=== PATIENT | female | born 1950 | race Caucasian/White ===

== ENCOUNTER 2018-07-22 05:59 | Inpatient (IN) | payer OTHER, SELFPAY ==
[2018-07-11 08:53] VITALS: BMI 41.5
[2018-07-22] VITALS (20 sets, daily range): BP systolic 105–161; BP diastolic 55–82; PULSE 62–112; RESP 6–17; TEMP 36.1–37.6; O2SAT 94–100; BMI 41.5
--- NOTE | 2018-07-22 | DI.RAD.S_ITS ---
PROCEDURE: XR LUMBAR SPINE 2-3V INDICATIONS: L3-4, L4-5 XLIF POSTERIOR FUSION TECHNIQUE: 2 views of the lumbar spine were acquired. COMPARISON: [facility], [place], XR LUMBAR SPINE 2 OR 3 VIEWS, 05/07/2018, 16:20. FINDINGS: 2 intraoperative fluoroscopy images demonstrate discectomy and posterior fusion at L3L4 and L4-L5. IMPRESSION: Discectomy and posterior fusion at L3-L4 and L4-L5. Dictated by: Edson Choi M.D. on 07/22/2018 at 16:30 Approved by: Edson Choi M.D. on 07/22/2018 at 16:31
[2018-07-22] MEDS: LACTATED RINGERS 1,000 ML 42 ML IV ×2 (06:50→09:42)
--- NOTE | 2018-07-22 07:29 | PM.PREOP ---
Pre-operative Note Interval Note Pre-op Check: Yes History & Physical Reviewed by Physician and Yes Exam Performed Changes: No
--- NOTE | 2018-07-22 07:45 | PM.OP.1 ---
Operative Date/Time/Diagnoses Date of procedure: 07/22/18 Time of procedure: 13:02 Pre-op diagnosis: Lumbar stenosis History of lumbar laminectomy Lumbar spondylolisthesis Post-op diagnosis: same Procedure & Clinicians Procedure: L3-4, L4-5 anterior fusion with cages L3-4, L4-5 posterior fusion L3, L4, L5 screws Iliac crest bone graft Revision L3-4 laminectomy Revision L4-5 laminectomy Microscope Placement of epidural catheter Same procedure as scheduled: Yes Indications: [age] year old female with intractable pain from stenosis. They had failed conservative management and requested operative intervention. Risks and benefits of surgery were discussed and appropriate consents were obtained. Surgeon: Iglesia Reynoso Building Equipment Operator: Kimmy Daigle Anesthesia Type: General Operative Notes Findings: dural tear, repaired primarily Closure Type: primary Specimen(s): none sent Implants & Drains: NuVasive Reline screws (open and MAS) NuVasive XLIF cages Applied: catheter Estimated Blood Loss (mL): 50 Procedure in detail: Patient was brought to the operating room and intubated on the table. Time-out was performed. They were then rolled over to the lateral decubitus position with the [id number]. The table was bent and they were taped down in the correct position. X-rays were taken to confirm a true AP and lateral. Preoperative antibiotics were given. The left flank was prepped and draped in standard sterile fashion. Using fluoroscopy, a 3 cm incision was made above the iliac crest. We bluntly dissected down with Metzenbaum scissors and split the 3 abdominal muscle layers. We dissected out the retroperitoneal space and using finger guidance, brought our 1st dilator down to the psoas muscle. Using neuromonitoring and fluoroscopy, we placed it through the psoas onto the L4-5 disc space in an anterior position and gradually pulled the dilator posteriorly along the disc space. We placed our guidewire and measured our depth for the retractor. We then dilated with the next 2 dilators and then placed our retractor over the dilators. Position was confirmed with fluoroscopy and the retractor was locked down to the bar. We opened up the retractor and checked with neuro monitoring. We then placed the cesar and again checked with neuro monitoring. The retractor was opened further and the ALL retractor was placed. An annulotomy was performed. We then performed a complete diskectomy with ring curette, pituitary, box osteotome. A Curry was advanced across the disc space under fluoroscopy to release the lateral annulus on the opposite side. We then used sequentially larger trials and confirmed under fluoroscopy. An XLIF cage was packed with Osteocell bone graft and impacted into the L4-5 disc space with fluoroscopy for the anterior fusion at this level. The wound was irrigated. The retractor was closed down. The cesar was removed. We carefully removed the retractor with direct visualization to make sure there was no neurovascular or abdominal injury. We then repeated the procedure and went up to L3-4. This was dilated, the retractor opened, a complete diskectomy with lateral release, and placement of a cage with bone graft for the anterior fusion at L3-4. The retractor was carefully removed under direct visualization. Final x-rays were taken. The muscle fascia was closed, superficial tissue was closed. The skin was closed. Sterile dressing was placed. The patient was then rolled over on the well-padded prone position on the Raoms table. Using fluoroscopy for localization, a 10cm incision was made in the midline using her previous incision. We dissected down the right sided paraspinal muscles to expose the lamina and confirmed our position. We were very careful over previous laminotomy at L3-4. We then exposed the transverse processes at the level of fusion. We then began placing our screws. A bur was used to decorticate the junction of the facet and transverse process. We then advanced a gear shifter down the pedicle using neuro monitoring. We checked with the ball probe to confirm a floor and 4 wong on the pedicle. We then tapped also with neuro monitoring. We checked again with the ball probe and then placed our screw with neuro monitoring. The screws were placed in this fashion down the right pedicles of L3, L4, and L5. The lindsey was loosely placed and x-rays were taken to confirm positioning and then the set screws were locked down. We then brought in the microscope. A laminectomy was performed at L4-5 with a bur and Kerrison rongeurs. She had scar tissue tracking all the way down to the L4-5 disc space from her previous decompression. Her entire ligament was calcified and densely adherent to the facet at L4-5. As we are trying to remove this to decompress, we had a dural tear. This was protected with a cottonoid dexter. We then finished out the decompression using osteotomes to remove the facets and carefully clearing back with a curette. Finally we were able to get the scar tissue freed up and adequately decompressed. We cleared out the neural foramen. This was a revision decompression at both levels due to the severe amount of scar tissue at her operative level L3-4 as well as tracking down to the L4-5 level. Once everything was wide open, we repaired the dural tear with a running locking 6 0 silk stitch. This was water tight on Valsalva. The wound was copiously irrigated. A small stab incision was made over the PSIS and a Jamshidi needle was placed into the iliac crest and several mL of bone marrow was aspirated. This was mixed with our locally harvested bone graft as well as the remaining Osteocell and bone chips and placed in the posterolateral gutter for fusion at L3-4 and L4-5. An epidural catheter was primed with 4mL of 0.5% bupivacaine, 100 mcg fentanyl, 4 mg Duramorph, 1 mg Stadol. The dura was depressed under the cephalad lamina with a ball probe and the epidural catheter was gently advanced 6 cm cephalad. The fascia was then closed in layers. The epidural was then injected without resistance. The catheter was pulled and we closed more over the fascia. We then used fluoro to make a 8 cm incision on the left side. We used fluoro and neuro monitoring to percutaneously place Jamshidi needles down the left pedicles of L3, L4, and L5. These were switched out the guidewires, tapped and the MAS screws were placed. A lindsey was placed and locked down. Final x-rays were taken. The wounds were irrigated. Vancomycin powder was placed in the wounds. The superficial and skin were closed. Sterile dressing was placed. The patient was then rolled over, extubated, brought to the recovery room with no complications. Complications: none Condition: stable Disposition: PACU Plan for aftercare: Bedrest today after the dural tear but up tomorrow morning.
[2018-07-22] MEDS: CEFAZOLIN 2 GM/100 ML FROZ.PIGGY IV ×3 (07:53→19:45)
--- NOTE | 2018-07-22 08:39 | SUR.OPER ---
Right lateral on padded OR table. Head on pillow, gel axillary roll, pillow to support left arm. Legs flexed, pillows between legs, gel pad under down leg and ankle. Multiple passes of 3 inch cloth tape across shoulder, hip, upper and lower legs to secure patient on OR table.
--- NOTE | 2018-07-22 08:39 | SUR.OPER ---
Prone on spine table, head in foam head support, padded chest and pelvic supports, gel pad at knees, lower legs supported by pillows; nipples, genitalia and toes free of pressure, arms secured on foam padded arm boards at <90 degrees abduction. Tape over blanket at thigh secured to table.
[2018-07-22] MEDS: SODIUM CHLORIDE 0.9% 1,000 ML, GENTAMICIN 80 MG IRR (08:51)
[2018-07-22] MEDS: BUPIVACAINE 0.5% (PF) 4 ML, MORPHINE-PF 4 MG, BUTORPHANOL 1 MG, fentaNYL 100 MCG INJ (08:54)
[2018-07-22] MEDS: VANCOMYCIN 1,000 MG VIAL 1000 MG TOP (08:55)
[2018-07-22] MEDS: THROMBIN (BOVINE) 5,000 UNIT VIAL 5000 UNIT TOP (11:12)
--- NOTE | 2018-07-22 14:18 | SUR.PHASEI ---
DR PETERS NOTIFIED PT REMAINS VERY SLEEPY AND NEEDING CONSTANT STIMULI TO BREATH, DR PETERS IN TO SEE PT, WILL HAVE RESPIRATORY IN TO USE HOSPITAL BIFLEX MACHINE PTS CPAP MACHINE IS NOT ABLE TO USE WITH OXYGEN. DR CISNEROS ALSO NOTIFIED PT REMAINS SLEEPY WITH RESPIRATORY RATE 4-9 IF NOT STIMULATED, WILL CONTINUE TO OBSERVE AND MONITOR.
--- NOTE | 2018-07-22 14:20 | RT ---
Patient has her bipap machine with her. She is unable to wear it at this time due to her need for O2 bled in. Placed on the hospital's biflex machine with 4lpm of O2 bled in. Patient is using a medium nasal mask with our machine and is tolerating it well. She has nasal pillows with her home machine. Patient was informed she can go back to using her machine as soon as she is able to, we are just unable to bleed in the oxygen needed at this point to her machine.
[2018-07-22] MEDS: HYDROMORPHONE 2 MG INJ 0.25 MG IV (15:08)
[2018-07-22] MEDS: CELECOXIB 200 MG CAPSULE 400 MG PO (16:22)
[2018-07-22] MEDS: LACTATED RINGERS 1,000 ML 125 ML IV ×2 (16:28→22:36)
[2018-07-22] MEDS: ONDANSETRON 4 MG/2 ML INJ IV (18:46)
[2018-07-22] MEDS: GABAPENTIN 300 MG CAPSULE PO (21:09)
[2018-07-22] MEDS: CELECOXIB 200 MG CAPSULE PO (21:09)
[2018-07-22] MEDS: DORZOLAMIDE/TIMOLOL OPHTH 10 ML 1 DROPS EYE-BOTH (21:10)
--- NOTE | 2018-07-22 21:43 | PC.NURSE ---
Pt remains drowsy after surgery today. Oriented when awake, rouses to voice. Placed on home CPAP by RT, SpO2 94%. Dressings to back CDI. HOB flat per orders. 1 episode of nausea and dry heaving, resolved with IV zofran.
[2018-07-23] VITALS (11 sets, daily range): BP systolic 91–128; BP diastolic 41–66; PULSE 73–106; RESP 13–20; TEMP 36.1–37.8; O2SAT 90–99
[2018-07-23] MEDS: HYDROCODONE/ACET 5/325 TABLET 1 TAB PO ×4 (00:19→16:21)
[2018-07-23] MEDS: hydrOXYzine pamoate 25 MG CAPSULE PO ×3 (00:21→16:21)
[2018-07-23] MEDS: CEFAZOLIN 2 GM/100 ML FROZ.PIGGY IV (04:08)
[2018-07-23] MEDS: ONDANSETRON 4 MG/2 ML INJ IV (04:24)
[2018-07-23 05:53] LABS: Hematocrit 31.3 % (36-46); Hemoglobin 10.5 g/dL (12.0-16.0)
[2018-07-23] MEDS: METOCLOPRAMIDE 10 MG/2 ML INJ IV (06:31)
--- NOTE | 2018-07-23 07:06 | PC.NURSE ---
NOC Shift: Pt POD LAMI Redo w/dura tear. AAOx3, on home CPAP throughout noc w/o O2 support. SaO2's remained low 90's, sometimes 88 to 89 when asleep. VSS, ST. FOB through shift per MD order, neurologically intact, no deficits noted except mild headache. Medicated with po pain med. At end of shift pt developed nausea, emesis x2 was able to keep airway protected, sats stable. Wanted to be off CPAP this AM felt it was making her feel nauseated, put on 2L NC while dozing to keep sats from dropping below 90. Using IS appropriately. Dsgs CDI. HOB up to 35 degrees at 0700 ordered to be up to 45 but pt felt dizzy at 45. ICU care.
--- NOTE | 2018-07-23 08:07 | P.PN_ITS ---
Subjective Date Patient Seen: 07/23/18 Time Patient Seen: 08:05 Interval history: Patient had problems with nausea and vomiting overnight. This is getting much better. She also had a headache but that is getting better. She was on bedrest overnight but has been up with an elevated head of bed since 7:00 a.m.. No difficulty with this. No photophobia, worsening of headache or any current nausea. No pain in the legs, although back pain. Pain is about 3/10 Exam Vital Signs (past 8 hours): - 07/23/18 04:07 Temperature 96.9 F L Pulse Rate 106 H Respiratory Rate 17 Blood Pressure 123/44 L Pulse Oximetry 96 Oxygen Delivery Method CPAP Oxygen Flow Rate 2 Const Orientation: alert and oriented x3 Back/Spine/Pelvis Other: Dressing CDI. 5/5 motor both lower extremities Objective Labs Result Diagrams: 07/23/18 05:20 Labs: Laboratory Results - last 24 hr 07/22/18 07/23/18 16:00 05:20 Hgb 10.5 L Hct 31.3 L Nasal Screen MRSA (PCR) Negative for mrsa Assessment & Plan Post-op Postoperative Procedures Operation Date: 07/22/18 07:45 Actual Procedures Side Surgeon p L3-L4 Revision Laminectomy, L4-L5 Laminectomy, L3-L4, L4-L5 Anterior/ Posterior Instrumented Fusion w/ Bone Graft with Dural Repair Not Applicable Iglesia Reynoso MD she is doing better today. Okay to mobilize with physical therapy. No more restrictions for the dural tear. Transfer to the regular floor.
[2018-07-23] MEDS: CELECOXIB 200 MG CAPSULE 400 MG PO (09:25)
[2018-07-23] MEDS: DOCUSATE 100 MG CAPSULE PO ×2 (09:26→20:59)
[2018-07-23] MEDS: PANTOPRAZOLE 40 MG TABLET PO (09:28)
[2018-07-23] MEDS: LEVOTHYROXINE 88 MCG TABLET PO (09:28)
[2018-07-23] MEDS: DORZOLAMIDE/TIMOLOL OPHTH 10 ML 1 DROPS EYE-BOTH ×2 (09:29→21:01)
--- NOTE | 2018-07-23 11:39 | PT.IIE ---
Addendum entered and electronically signed by Janie Baxter PT 07/23/18 17:08: This is to certify that I have reviewed this documentation and POC Original Note: Current Diagnoses Spondylolisthesis, lumbar region (07/22/18) Spinal stenosis, lumbar region with neurogenic claudication (07/22/18) Other specified postprocedural states (07/22/18) Surgery Performed Operation Date: 07/22/18 07:45 Actual Procedures p L3-L4 Revision Laminectomy, L4-L5 Laminectomy, L3-L4, L4-L5 Anterior/Posterior Instrumented Fusion w/ Bone Graft with Dural Repair(Not Applicable) - Iglesia Reynoso MD Surgical History (Last Updated 07/11/18 @ 09:21 by Gwendolyn Acosta RN) History of bilateral tubal ligation (Acute) Hx of lumbar discectomy (Acute) Medical History (Last Updated 07/11/18 @ 09:29 by Gwendolyn Acosta RN) Arthritis (Acute) Cataract (Acute) Concussion (Acute) Easy bruisability (Acute) GERD (gastroesophageal reflux disease) (Acute) Glaucoma (Acute) History of frequent urinary tract infections (Acute) Hypothyroidism (Acute) Lumbar spinal stenosis (Acute) Numbness and tingling (Acute) MARAL on CPAP (Acute) RLS (restless legs syndrome) (Acute) Seasonal allergies (Acute) Sinus drainage (Acute) Walking pneumonia (Acute) Physical Therapy Inpatient Evaluation/Re-Eval M1 PT/OT-IP Prior Functional Status Start: 07/23/18 12:42 Freq: NEEDED Status: Active Protocol: Document 07/23/18 11:39 (Rec: 07/23/18 16:28 [id number]) Medical Review Prior Functional Status Medical History Reviewed Yes Communication No deficits noted. Mobility and Gait Pt modified independent for outdoor ambulation using 2 walking sticks. Indoors she uses no AD, but does tend to cruise along the furniture. All other mobilities are independent. Social History Household Members spouse children Living Arrangements House Number of Floors (Floors) Two Floors Number of Stairs To Enter/Railing? No steps to enter. Home is 2 story, but pt set up to live entirely on first floor upon d /c. Home Environment Standard Height Toilet Walk in Shower Home Equipment Front Wheel Walker Raised Toilet Seat w/Armrests Hand Held Shower Additional Social History Comment Spouse avaliable to assist at discharge. Pt also sleeps in an adjustable bed with no rails. M2 PT-IP Current Condition Start: 07/23/18 12:42 Freq: NEEDED Status: Active Protocol: Document 07/23/18 11:39 (Rec: 07/23/18 16:28 [id number]) Physical Therapy Current Condition Current Condition Evaluation Date 07/23/18 Treatment Diagnosis Lumbar anterior/posterior fusion with laminectomy; Difficulty walking Onset Date 07/22/18 Precautions Lumbar Precautions Log Roll No Twisting Limit Bending Lifting Restriction of 10 lbs Gait Belt above Incisional Area M3 PT-IP Subjective Start: 07/23/18 12:42 Freq: NEEDED Status: Active Protocol: Document 07/23/18 12:42 AB (Rec: 07/23/18 12:44 AB [id number]) Subjective Physical Therapy Visit Type Notes checked on pt this morning for PT eval. PLOF and home set up obtained. BP prior to mobilization with HOB elevated to ~ 30 deg 88/38 on R arm and 80/64 on L arm. informed nurse. lowered HOB. BP checked again : 93/41. PT on hold at this time due to low BP. will f/u later in afternoon M4 PT-IP Mobility and Gait Start: 07/23/18 12:42 Freq: NEEDED Status: Active Protocol: Document 07/23/18 11:39 (Rec: 07/23/18 16:28 [id number]) PT-Bed Mobility Assessment Rolling Type of Rolling Log Rolling Roll to Right Level of Assist Maximal Assistance Supine to Sit Supine to Sit Maximum Assistance 1 Person Assistance Bedrails Scooting Scooting to Edge of Bed Moderate Assistance PT-Transfer Assessment Sit to and From Stand Sit to and from Stand Minimal Assistance 1 Person Assistance Equipment Transfer Assistive Device Gait Belt Front Wheeled Walker Transfers Transfer Destination Chair Comments Mobility Comments Supine BP 114/59 HR 76. Log rolling requires maxA x1 to complete with max cues for pt position. Sidelying > sitting EOB pt uses bed rail and maxA x1. Scooting to EOB requires modA x1 and cues to lean to one side and scoot one leg at a time. Sitting EOB pt c/o of dizziness. BP 159/104 HR 125. Pt cued for deep breathing and asked to rest. After 1-2 mins. resting, BP 128/69 HR 90 . Pt states dizziness still present, but decreased and agrees to attempt standing. Sit > stand is Alex with cues to push off of bed (not walker ) and to stand fully upright. Standing BP 116/68 HR 87. Pt cued for more deep breathing and standing rest 1-2 mins. BP 132/61 HR 89. Pt states dizziness is not increasing and she is anxious to ambulate . Gait Assessment Gait Gait Assistance Required: Minimum Assistance 1 Person Assist Distance (Feet) 15 Able to Maintain Weight Bearing Status Yes During Gait Assistive Devices Assistive Device Gait Belt Front Wheeled Walker Orthotic/Prosthetic Devices or Brace: No Gait Deviations General Gait Pattern Antalgic Decreased Stride Length Decreased Feet Clearance Flexed Trunk Narrow Based Gait Factors Limiting Gait Function Factors Limiting Gait Function Decreased Activity Tolerance Decreased Strength Limited Range of Motion Pain Poor Balance Poor Safety Awareness Comments Gait Comments Pt ambulates 15 ft in room with fww and Alex for steadying. She demonstrates increased sway and forward posture which she is able to correct with cues. Toe out gait and flat feet noted with ambulation. PT-Balance Assessment Sitting Balance and Reactions Static Sitting Balance Ability Good Dynamic Sitting Balance Ability Good Standing Balance and Reactions Static Standing Balance Ability Good Dynamic Standing Balance Ability Fair Device Used fww M5 PT-IP Objective Assessments Start: 07/23/18 12:42 Freq: NEEDED Status: Active Protocol: Document 07/23/18 11:39 (Rec: 07/23/18 16:28 [id number]) Orientation Orientation/Cognition Level of Alertness Alert Orientation Name Age Birthday Month Date Year Day of Week Place Situation Safety Awareness Decreased Safety Awareness Memory Description Short Term Impaired Gross Range of Motion Lower Extremity ROM Assessment Within Functional Limits Strength Lower Extremity Strength Assessment Bilaterally Impaired Hip Bilaterally 3+/5 Knee Bilaterally 3+/5 Ankle Bilaterally WNL Comments Strength Comments BLE strength limited by pain. Sensation Assessment Comments Sensation Comments Light touch intact on dorsum of B feet. Pt denies symptoms of numbness and tingling. M6 PT-IP Treatment Start: 07/23/18 12:42 Freq: NEEDED Status: Active Protocol: Document 07/23/18 11:39 (Rec: 07/23/18 16:28 [id number]) Physical Therapy Treatment Education Education Provided Precautions Weight Bearing Status Post-Op Packet Safety M7 PT-IP Assessment and Plan Start: 07/23/18 12:42 Freq: NEEDED Status: Active Protocol: Document 07/23/18 11:39 (Rec: 07/23/18 16:28 [id number]) PT Summary Assessment and Plan Potential Rehabilitation Potential Good Status of Condition at Evaluation Stable Summary Impairments Pain ROM Strength Balance Bed Mobility Transfers Gait Activity Tolerance Progress Towards Goals Progressing Toward Goals Assessment Summary Pt s/p lumbar fusion and laminectomy with difficulty walking. Today she required maxA x1 for all bed mobility. She was able to ambulate 15 ft with Alex x1. Caregiver training needs to be completed . Recommend d/c to home with 24/7 assist when pt is medically stable. Goals Bed Mobility Goal Standby Assistance Transfer Goal Standby Assistance Front Wheeled Walker Gait Goal Standby Assistance Front Wheel Walker Gait Distance 150 Days to Meet Goals 3 Frequency of Treatment Frequency Of Treatment Twice a Day Treatment Plan Physical Therapy Treatment Plan Bed Mobility Training Transfer Training Gait Training Therapeutic Exercise Balance Retraining Post Op Education Discharge Planning Hot or Cold Pack Neuromuscular Re-ed Coordination Retraining Manual Therapy Other Recommendations and Next Treatment ambulation. Caregiver Focus training Recommendations To Nursing Amount of Assist Needed 1 Person Assist Discharge Recommendations PT Discharge Recommendations Home with 24/7 Assist
--- NOTE | 2018-07-23 12:44 | PT.IPTN ---
Current Diagnoses Spondylolisthesis, lumbar region (07/22/18) Spinal stenosis, lumbar region with neurogenic claudication (07/22/18) Other specified postprocedural states (07/22/18) Surgery Performed Operation Date: 07/22/18 07:45 Actual Procedures p L3-L4 Revision Laminectomy, L4-L5 Laminectomy, L3-L4, L4-L5 Anterior/Posterior Instrumented Fusion w/ Bone Graft with Dural Repair(Not Applicable) - Iglesia Reynoso MD Physical Therapy Treatment Note M3 PT-IP Subjective Start: 07/23/18 12:42 Freq: NEEDED Status: Active Protocol: Document 07/23/18 12:42 AB (Rec: 07/23/18 12:44 AB [id number]) Subjective Physical Therapy Visit Type Notes checked on pt this morning for PT eval. PLOF and home set up obtained. BP prior to mobilization with HOB elevated to ~ 30 deg 88/38 on R arm and 80/64 on L arm. informed nurse. lowered HOB. BP checked again : 93/41. PT on hold at this time due to low BP. will f/u later in afternoon
--- NOTE | 2018-07-23 12:56 | OT.IP.TRT ---
Current Diagnoses Spondylolisthesis, lumbar region (07/22/18) Spinal stenosis, lumbar region with neurogenic claudication (07/22/18) Other specified postprocedural states (07/22/18) Surgery Performed Operation Date: 07/22/18 07:45 Actual Procedures p L3-L4 Revision Laminectomy, L4-L5 Laminectomy, L3-L4, L4-L5 Anterior/Posterior Instrumented Fusion w/ Bone Graft with Dural Repair(Not Applicable) - Iglesia Reynoso MD Occupational Therapy Treatment Note M3 OT- IP Subjective and Pain Start: 07/23/18 12:54 Freq: Status: Active Protocol: Document 07/23/18 12:54 PJM (Rec: 07/23/18 12:56 PJM [id number]) OT- Subjective Occupational Therapy Visit Type Type Administrative Note Visit Start Time 12:50 Notes OT referral received. Pt unable to mobilize with P.T. this AM due to hypotension. Pt not yet ready fro self care assessment. Will attempt again this PM or in AM as medical status permits. No charge.
--- NOTE | 2018-07-23 15:28 | CM.DPC ---
DCP Cont: Met w/pt and her spouse in the ICU this morning, explained role. Pt is indp at baseline and expects to return home w/spouse to assist when medically stable. Pt appreciative of the visit and knows to alert this HUMAN RESOURCES MANAGER if DC needs or concerns arise. PT on hold today d/t pt's BP. This HUMAN RESOURCES MANAGER following closely w/therapy team for assessment of DC needs. SONIA Alejandro Discharge Planning/Care Management CM Discharge Assessment Start: 07/22/18 10:16 Freq: Status: Active Protocol: Document 07/22/18 10:16 KJS (Rec: 07/22/18 10:30 KJS [id number]) Discharge Planning Assessment Assigned Emergency Medicine Medical Director SONIA Fitzgerald Contact Information Price Wang (spouse) Advance Directives? No Advance Directives on File No History Provided By Medical Record Has Patient been admitted in last 30 No days? Prior Living Arrangements House Household Members spouse children Comment Unclear patient currently in surgery. Unable to do assessment. Whiteboard Updated in Patient Room with No name and ext. # of Emergency Medicine Medical Director Comment Patient admitted today for L4- L5 Lami with Dr. Reynoso. Primar payor is 1)[employer]. PCP listed is Lotus Warren. Patient resides in [place]. CM team to assess once patient on the floor and medically appropriate.
[2018-07-23] MEDS: LORazepam 2 MG/ML SYRINGE 0.5 MG IV (20:29)
[2018-07-23] MEDS: GABAPENTIN 300 MG CAPSULE PO (20:59)
[2018-07-23] MEDS: SENNOSIDES 8.6 MG TABLET 17.2 MG PO (20:59)
[2018-07-23] MEDS: HYDROCODONE/ACET 5/325 TABLET 2 TAB PO (21:00)
[2018-07-23] MEDS: CELECOXIB 200 MG CAPSULE PO (21:01)
--- NOTE | 2018-07-23 22:09 | PC.NURSE ---
Student nurse note: When this student nurse came on shift patient had low urine output of 200mls and urine was dark orange. She had no fluids running. When asked about her oral fluid intake she stated that she had a bout of nausea and vomiting the night before and was very hesitant to eat or drink anything. This student nurse educated the patient on the importance of keeping hydrated to help with kidney function and healing. The patient had previously stated that she knew she was dehydrated. The patient responded well to the education and verbally acknowledged that she understood and this student nurse witnessed the patient increase her oral intake of water. As a result by the end of shift her urine output increased to 800mls and urine was clear and light yellow. Patient reported that she had not had a bowel movement since the night before surgery. She reported little food intake because she was anxious about another episode of nausea and vomiting. Patient had hypoactive bowel tones. She saw PT and ambulated minimally from bed to chair in room and back. Patient ate approximately 25% of her meal, she reported that was the most she has eaten so far. She reported no post meal nausea Patient reported pain between 3 and 4. When she transferred from standing to lying in bed patients face indicated she was in an extreme amount of pain and use some curse words to cope with high pain level. When asked pain level during this time she reported a 4. This student nurse asked the patient what her highest level of pain experienced so far was and patient stated that it was a 4. Earlier in the shift the patient was offered 2 PRN [place] to treat pain. Patient was still anxious about reoccurring nausea/vomiting so she stated she would take only 1 [place] and an Vistaril. Towards the end of this student nurses shift the patient reported a pain level of 4 but her FLACC score was a 10. The patient asked to be repositioned on her side and during repositioning the patient expressed that she thought she may throw up. This student nurse educated the patient in pain management by stating that when you are in extreme pain you may experience nausea and vomiting and that she may need to consider taking both of her pain medications to stay on top of her pain, and in turn manage nausea. The charge nurse administered Ativan 0.5mg IV push which was a PRN order. This student nurse checked back in on the patient in 30min to see if her nausea subsided. The patient reported that it had. The patient ate some crackers with water before her evening medications. The patient stated that she would try both of her PRN Hydrocodone 5/325. The patient did not report any post medication nausea. This student nurse checked in on the patient around 40min later to find the patient sleeping. An O2 monitor was placed on the patients finger to find an O2 sat of 88%. The charge nurse was notified, she monitored the reading for 60sec then placed the patient on 1L O2 NC. Within 5 min patient's O2 sat was increased to 98%.
[2018-07-24] VITALS (7 sets, daily range): BP systolic 106–124; BP diastolic 44–65; PULSE 70–82; RESP 16–20; TEMP 36–37.1; O2SAT 88–98
--- NOTE | 2018-07-24 00:07 | PC.NURSE ---
RT placed pt. on the hospitals CPAP with 2L 02 bleeding in, Sats so far at this time is 93%.
[2018-07-24] MEDS: PANTOPRAZOLE 40 MG TABLET PO (06:21)
[2018-07-24] MEDS: LEVOTHYROXINE 88 MCG TABLET PO (06:21)
[2018-07-24] MEDS: HYDROCODONE/ACET 5/325 TABLET 1 TAB PO ×4 (06:22→19:07)
--- NOTE | 2018-07-24 07:41 | P.PN_ITS ---
Subjective Date Patient Seen: 07/24/18 Time Patient Seen: 07:39 Interval history: She is doing very well. She is doing very well. Pain 2/10. Exam Vital Signs (past 8 hours): - 07/23/18 23:48 07/24/18 04:08 07/24/18 07:32 Temperature 98.7 F 96.8 F L 98.8 F Pulse Rate 87 80 82 Respiratory Rate 18 16 18 Blood Pressure 102/51 L 114/63 107/44 L Pulse Oximetry 90 L 96 95 Oxygen Delivery Method Nasal Cannula Oxygen Flow Rate 2 Const Orientation: alert and oriented x3 Back/Spine/Pelvis Other: Dressing CDI. 5/5 motor both lower extremities Objective Labs Result Diagrams: 07/23/18 05:20 Assessment & Plan Post-op Postoperative Procedures Operation Date: 07/22/18 07:45 Actual Procedures Side Surgeon p L3-L4 Revision Laminectomy, L4-L5 Laminectomy, L3-L4, L4-L5 Anterior/ Posterior Instrumented Fusion w/ Bone Graft with Dural Repair Not Applicable Iglesia Reynoso MD She is doing very well. Mobilize with physical therapy. Probable discharge tomorrow. Transfer out of ICU when bed available.
[2018-07-24] MEDS: CELECOXIB 200 MG CAPSULE PO ×2 (08:34→22:15)
[2018-07-24] MEDS: DORZOLAMIDE/TIMOLOL OPHTH 10 ML 1 DROPS EYE-BOTH (08:34)
[2018-07-24] MEDS: hydrOXYzine pamoate 25 MG CAPSULE PO ×3 (08:34→19:08)
[2018-07-24] MEDS: DOCUSATE 100 MG CAPSULE PO ×2 (08:34→22:14)
--- NOTE | 2018-07-24 10:37 | PT.IPTN ---
Current Diagnoses Spondylolisthesis, lumbar region (07/22/18) Spinal stenosis, lumbar region with neurogenic claudication (07/22/18) Other specified postprocedural states (07/22/18) Surgery Performed Operation Date: 07/22/18 07:45 Actual Procedures p L3-L4 Revision Laminectomy, L4-L5 Laminectomy, L3-L4, L4-L5 Anterior/Posterior Instrumented Fusion w/ Bone Graft with Dural Repair(Not Applicable) - Iglesia Reynoso MD Physical Therapy Treatment Note M2 PT-IP Current Condition Start: 07/23/18 12:42 Freq: NEEDED Status: Active Protocol: Document 07/23/18 11:39 (Rec: 07/23/18 16:28 [id number]) Physical Therapy Current Condition Current Condition Evaluation Date 07/23/18 Treatment Diagnosis Lumbar anterior/posterior fusion with laminectomy; Difficulty walking Onset Date 07/22/18 Precautions Lumbar Precautions Log Roll No Twisting Limit Bending Lifting Restriction of 10 lbs Gait Belt above Incisional Area M3 PT-IP Subjective Start: 07/23/18 12:42 Freq: NEEDED Status: Active Protocol: Document 07/24/18 10:28 SA (Rec: 07/24/18 10:37 SA [id number]) Subjective Physical Therapy Visit Type Type Treatment Note Visit Start Time 10:03 Visit Stop Time 10:27 Total Visit Minutes 24 Notes Pt feeling better today, BPs tis AM WNLs. Checked prior to getting OOB and at 105/49. Number of FIELD MAP EDITOR Visits 1 Physical Therapy Visit Comments Patient Comments Pt with present, just had shower and pain meds and agreeable to PT. M4 PT-IP Mobility and Gait Start: 07/23/18 12:42 Freq: NEEDED Status: Active Protocol: Document 07/24/18 10:28 SA (Rec: 07/24/18 10:37 SA [id number]) PT-Bed Mobility Assessment Rolling Type of Rolling Log Rolling Roll to Right Level of Assist Moderate Assistance Supine to Sit Supine to Sit Moderate Assistance 1 Person Assistance Scooting Scooting to Edge of Bed Minimal Assistance PT-Transfer Assessment Sit to and From Stand Sit to and from Stand Contact Guard Assistance Equipment Transfer Assistive Device Gait Belt Front Wheeled Walker Transfers Transfer Destination Bed Toilet Transfer Technique Stand Step Pivot Transfer Ability Level of Assist Contact Guard Assistance Comments Mobility Comments Pt able to transfer with CGA and min cues for precautions. presents with gaurded posture and rates pain as 4/10 with movement. Gait Assessment Gait Gait Assistance Required: Contact Guard Assist 1 Person Assist Distance (Feet) 75 Able to Maintain Weight Bearing Status Yes During Gait Assistive Devices Assistive Device Gait Belt Front Wheeled Walker Orthotic/Prosthetic Devices or Brace: No Gait Deviations General Gait Pattern Antalgic Decreased Stride Length Decreased Feet Clearance Flexed Trunk Factors Limiting Gait Function Factors Limiting Gait Function Decreased Activity Tolerance Decreased Strength Poor Safety Awareness Respiratory Distress Comments Gait Comments Gait training in room/hallway with FWW and CGA, min cues for safety and increasing step length and upright posture. PT-Balance Assessment Comments Other Balance Tests/Deviations/Treatment Stand pivot tx on/off toilet : with FWW and grab bar with SBA -CGA and min cues. M5 PT-IP Objective Assessments Start: 07/23/18 12:42 Freq: NEEDED Status: Active Protocol: Document 07/23/18 11:39 (Rec: 07/23/18 16:28 [id number]) Orientation Orientation/Cognition Level of Alertness Alert Orientation Name Age Birthday Month Date Year Day of Week Place Situation Safety Awareness Decreased Safety Awareness Memory Description Short Term Impaired Gross Range of Motion Lower Extremity ROM Assessment Within Functional Limits Strength Lower Extremity Strength Assessment Bilaterally Impaired Hip Bilaterally 3+/5 Knee Bilaterally 3+/5 Ankle Bilaterally WNL Comments Strength Comments BLE strength limited by pain. Sensation Assessment Comments Sensation Comments Light touch intact on dorsum of B feet. Pt denies symptoms of numbness and tingling. M6 PT-IP Treatment Start: 07/23/18 12:42 Freq: NEEDED Status: Active Protocol: Document 07/24/18 10:28 (Rec: 07/24/18 10:37 [id number]) Physical Therapy Treatment Exercises Exercises Ankle Pumps Gluteal Sets Heel Slides Education Education Provided Precautions Weight Bearing Status Post-Op Packet Safety M7 PT-IP Assessment and Plan Start: 07/23/18 12:42 Freq: NEEDED Status: Active Protocol: Document 07/24/18 10:28 SA (Rec: 07/24/18 10:37 [id number]) PT Summary Assessment and Plan Summary Assessment Summary Pt doing much better today with stabilized BP and improved ambulation and mobility. Education for bed mobility and log roll technique. Frequency of Treatment Frequency Of Treatment Twice a Day Recommendations To Nursing Amount of Assist Needed 1 Person Assist Discharge Recommendations PT Discharge Recommendations Home with 24/ Assist
--- NOTE | 2018-07-24 14:29 | PC.NURSE ---
Addendum entered by Melody Villa R.N. 07/24/18 14:39: Pt's notified of pt's transfer to 221. Original Note: Day Shift Note Transferred to room 221 via wheelchair with PT. Medicated with Vistaril and [place] prior to transfer for pain 11/30. Doing well with logrolling, walking in halls with FWW. All belongings with pt including CPAP machine, meds, cell phone, and clothing. Report called to Dinora REEVES.
--- NOTE | 2018-07-24 14:35 | PT.IPTN ---
Current Diagnoses Spondylolisthesis, lumbar region (07/22/18) Spinal stenosis, lumbar region with neurogenic claudication (07/22/18) Other specified postprocedural states (07/22/18) Surgery Performed Operation Date: 07/22/18 07:45 Actual Procedures p L3-L4 Revision Laminectomy, L4-L5 Laminectomy, L3-L4, L4-L5 Anterior/Posterior Instrumented Fusion w/ Bone Graft with Dural Repair(Not Applicable) - Iglesia Reynoso MD Physical Therapy Treatment Note M2 PT-IP Current Condition Start: 07/23/18 12:42 Freq: NEEDED Status: Active Protocol: Document 07/23/18 11:39 (Rec: 07/23/18 16:28 [id number]) Physical Therapy Current Condition Current Condition Evaluation Date 07/23/18 Treatment Diagnosis Lumbar anterior/posterior fusion with laminectomy; Difficulty walking Onset Date 07/22/18 Precautions Lumbar Precautions Log Roll No Twisting Limit Bending Lifting Restriction of 10 lbs Gait Belt above Incisional Area M3 PT-IP Subjective Start: 07/23/18 12:42 Freq: NEEDED Status: Active Protocol: Document 07/24/18 14:35 GGD (Rec: 07/24/18 14:47 GGD [email or web address]) Subjective Physical Therapy Visit Type Type Treatment Note Visit Start Time 14:00 Visit Stop Time 14:35 Total Visit Minutes 35 Number of CARDING SUPERVISOR Visits 2 Physical Therapy Visit Comments Patient Comments Pt states that she needs to use the bathroom. Therapy Pain Assessment Pain When Pain Assessed During Mobility Pain Present Pain Present Pain Reported Location Lower Back Intensity 4 Scale Used Numeric (1 - 10) M4 PT-IP Mobility and Gait Start: 07/23/18 12:42 Freq: NEEDED Status: Active Protocol: Document 07/24/18 14:35 GGD (Rec: 07/24/18 14:47 GGD [id number]) PT-Bed Mobility Assessment Rolling Type of Rolling Log Rolling Roll to Right Level of Assist Contact Guard Assistance Supine to Sit Supine to Sit Minimal Assistance 1 Person Assistance Sit to Supine Sit to Supine Minimal Assistance 1 Person Assistance Scooting Scooting to Edge of Bed Contact Guard Assistance PT-Transfer Assessment Sit to and From Stand Sit to and from Stand Contact Guard Assistance Equipment Transfer Assistive Device Gait Belt Front Wheeled Walker Orthotic/Prosthetic Devices or Brace: No Transfers Transfer Destination Bed Toilet Wheelchair Transfer Ability Level of Assist Contact Guard Assistance Gait Assessment Gait Gait Assistance Required: Standby Assistance Distance (Feet) 150 Able to Maintain Weight Bearing Status Yes During Gait Assistive Devices Assistive Device Gait Belt Front Wheeled Walker Orthotic/Prosthetic Devices or Brace: No Gait Deviations General Gait Pattern Antalgic Decreased Stride Length Decreased Feet Clearance Flexed Trunk Factors Limiting Gait Function Factors Limiting Gait Function Decreased Activity Tolerance Decreased Strength Pain M5 PT-IP Objective Assessments Start: 07/23/18 12:42 Freq: NEEDED Status: Active Protocol: Document 07/23/18 11:39 (Rec: 07/23/18 16:28 [id number]) Orientation Orientation/Cognition Level of Alertness Alert Orientation Name Age Birthday Month Date Year Day of Week Place Situation Safety Awareness Decreased Safety Awareness Memory Description Short Term Impaired Gross Range of Motion Lower Extremity ROM Assessment Within Functional Limits Strength Lower Extremity Strength Assessment Bilaterally Impaired Hip Bilaterally 3+/5 Knee Bilaterally 3+/5 Ankle Bilaterally WNL Comments Strength Comments BLE strength limited by pain. Sensation Assessment Comments Sensation Comments Light touch intact on dorsum of B feet. Pt denies symptoms of numbness and tingling. M6 PT-IP Treatment Start: 07/23/18 12:42 Freq: NEEDED Status: Active Protocol: Document 07/24/18 14:35 GGD (Rec: 07/24/18 14:47 GGD [email or web address]) Physical Therapy Treatment Education Education Provided Precautions M7 PT-IP Assessment and Plan Start: 07/23/18 12:42 Freq: NEEDED Status: Active Protocol: Document 07/24/18 14:35 GGD (Rec: 07/24/18 14:47 GGD [id number]) PT Summary Assessment and Plan Summary Assessment Summary Pt improving with mobility. She was able to progress gait distance with decrease need in cues. She did need min A for bed mobility. She was stable with gati with FWW. She safe for d/C home when medically stable. Frequency of Treatment Frequency Of Treatment Twice a Day Treatment Plan Other Recommendations and Next Treatment ambulation. Caregiver Focus training Recommendations To Nursing Amount of Assist Needed 1 Person Assist Discharge Recommendations PT Discharge Recommendations Home with Assistance
--- NOTE | 2018-07-24 15:06 | OT.IP.EVAL ---
Current Diagnoses Spondylolisthesis, lumbar region (07/22/18) Spinal stenosis, lumbar region with neurogenic claudication (07/22/18) Other specified postprocedural states (07/22/18) Surgery Performed Operation Date: 07/22/18 07:45 Actual Procedures p L3-L4 Revision Laminectomy, L4-L5 Laminectomy, L3-L4, L4-L5 Anterior/Posterior Instrumented Fusion w/ Bone Graft with Dural Repair(Not Applicable) - Iglesia Reynoso MD Past Medical History (Last Updated 07/11/18 @ 09:29 by Gwendolyn Acosta RN) Arthritis (Acute) Cataract (Acute) Concussion (Acute) Easy bruisability (Acute) GERD (gastroesophageal reflux disease) (Acute) Glaucoma (Acute) History of frequent urinary tract infections (Acute) Hypothyroidism (Acute) Lumbar spinal stenosis (Acute) Numbness and tingling (Acute) MARAL on CPAP (Acute) RLS (restless legs syndrome) (Acute) Seasonal allergies (Acute) Sinus drainage (Acute) Walking pneumonia (Acute) Surgical History (Last Updated 07/11/18 @ 09:21 by Gwendolyn Acosta RN) History of bilateral tubal ligation (Acute) Hx of lumbar discectomy (Acute) Occupational Therapy Inpatient Evaluation/Re-Eval M1 PT/OT-IP Prior Functional Status Start: 07/23/18 12:42 Freq: NEEDED Status: Active Protocol: Document 07/24/18 15:06 BATOOL (Rec: 07/24/18 15:31 BATOOL [id number]) Medical Review Prior Functional Status Medical History Reviewed Yes Diet/Fluid Consistency Regular Communication No deficits noted. Mobility and Gait Pt modified independent for outdoor ambulation using 2 walking sticks. Indoors she uses no AD, but does tend to cruise along the furniture. All other mobilities are independent. Activities of Daily Living and IADL's Pt independent with self are, IADLS, driving but activity tolerance limited by low back pain. Social History Household Members spouse family Living Arrangements House Number of Floors (Floors) Two Floors Number of Stairs To Enter/Railing? No steps to enter. Home is 2 story, but pt set up to live entirely on first floor upon d /c. Home Environment Standard Height Toilet Walk in Shower Home Equipment Front Wheel Walker Raised Toilet Seat w/Armrests Hand Held Shower Long Handled Sponge Employment Status Retired Additional Social History Comment Spouse available to assist at discharge. 14 yr old granddaughter lives with them and can assist PRN. Pt also sleeps in an adjustable bed with no rails. M2 OT-IP Current Condition Start: 07/23/18 12:54 Freq: Status: Active Protocol: Document 07/24/18 15:06 PJM (Rec: 07/24/18 15:31 PJM [id number]) Occupational Therapy Current Condition Current Condition Evaluation Date 07/24/18 Treatment Diagnosis decreased self care, functional mobility s/pL3-4 lami redo w/dural tear Diagnosis Onset Date 07/22/18 Post Operative Precautions Lumbar Precautions Log Roll No Twisting Limit Bending Lifting Restriction of 10 lbs Gait Belt above Incisional Area M3 OT- IP Subjective and Pain Start: 07/23/18 12:54 Freq: Status: Active Protocol: Document 07/24/18 15:06 PJM (Rec: 07/24/18 15:31 PJM [id number]) OT- Subjective Occupational Therapy Visit Type Type Initial Evaluation Visit Start Time 14:28 Visit Stop Time 15:06 Total Visit Minutes 38 Notes Pt seen in bed this session due to fatigue from 2 P.T. sessions, shower and moving rooms. Occupational Therapy Visit Comments Patient Comments I have had back surgery before, but this one was worse . Patient/Caregiver Goals to go home, have less pain and regain independence in daily activities OT Pain Assessment Pain When Pain Assessed After Treatment Pain Present Pain Present Pain Reported Location Lower Back Intensity 2 Scale Used Numeric (1 - 10) Description Aching Acute Pain Behaviors Facial Grimacing Guarding Management Techniques Distraction Timing of Activity with Medications M4 OT- IP ADL's Start: 07/23/18 12:54 Freq: Status: Active Protocol: Document 07/24/18 15:06 PJM (Rec: 07/24/18 15:31 PJM [id number]) OT [id number] General Evaluation Self-Feeding Ability Independent OT ADL-Grooming General Evaluation Grooming Ability Standby Assistance Areas Needing Assistance Retrieving/Set-up of Grooming Items Combing/Brushing Hair Comments OT Grooming Comments Pt states she stood at sink for grooming today with CASINO SURVEILLANCE OFFICER. Provided education re: body mechanics. OT ADL-Oral Care General Eval Oral Care Ability Standby Assistance Areas of Assistance Brushing Teeth Retrieving/Set-Up of Items Devices Oral Care Devices Toothbrush Comments Oral Care Comments Pt states she stood at sink for grooming today with CASINO SURVEILLANCE OFFICER. Provided education re: body mechanics. OT ADL-Dressing General Eval Lower Body Dressing Ability Maximum Assistance Assistive Devices Dressing Assistive Devices Client Service Coordinator Sock Aid Comments OT Dressing Comments Began education and demonstration re: use of creasing machine operator and sock aid for lower body dressing. Pt wears slip on shoes and declines long shoe horn. Provided ordering info, online resources to obtain equipment. OT ADL-Toileting General Evaluation Toileting Ability Moderate Assistance Areas Needing Assistance Perform Perineal Hygiene Devices Toileting Assistive Devices Toilet Paper Aid Comments OT Toileting Comments Pt reports difficulty reaching to wiper bottom so provided education re: toilet paper aids, ordering info, online resources. OT ADL-Bathing General Evaluation Bathing Ability Minimal Assistance Areas Needing Assistance Wash/Dry Back Wash/Dry Lower Extremities Devices Bathing Equipment Long Handled Sponge or Roving Tester Laboratory Held Shower Sprayer Comments OT Bathing Comments Per CASINO SURVEILLANCE OFFICER, pt was min assist for seated shower today. Pt plans to intelligence clerk shower stall at home; no grab bars. can assist PRN. Pt has long bath brush and hand held shower hose. M5 OT- IP IADL's Start: 07/23/18 12:54 Freq: Status: Active Protocol: Document 07/24/18 15:06 [facility] (Rec: 07/24/18 15:31 [facility] [id number]) OT-Instrumental Activities of Daily Living Deficits IADL Deficits Identified Deficits Home Safety Awareness Awareness of Need for Assistance at Home Good Awareness Ability to Problem Solve Emergency Able to Problem Solve Situations Medication Management Medication Management No Deficits Identified Money Management Money Management No Deficits Identified Meal Preparation Meal Preparation Caregiver Provides Assist Meal Preparation Comments Family to assist until pt able . Trimming Press Operator Trimming Press Operator Caregiver Provides Assist Trimming Press Operator Comments Family to assist until pt able . Driving Driving Caregiver Provides Assist Driving Comments Family to assist until pt able . M6 OT- IP Functional Cognition Start: 07/23/18 12:54 Freq: Status: Active Protocol: Document 07/24/18 15:06 PJ (Rec: 07/24/18 15:31 [facility] [id number]) Cognitive Factors Limiting Selfcare Function Cognitive Ability Level of Alertness Drowsy Patient Orientation Name Age Birthday Month Date Year Day of Week Place Situation Attention Span Ability Capable of Focused Attention Ability to Follow Commands Able to Follow One Step Commands Problem Solving Ability Needs Assist to Identify Solutions Cognitive Comments Cognitive Assessment Comments Pt mildly drowsy from pain meds, but asking appropriate questions about adapted ADL techniques. OT- Vision and Hearing OT- Vision Assessment Vision History Cataracts Glaucoma Visual Acuity Glasses All The Time Vision Assessment Comments Pt plans to have cataract surgery when recovered from back surgery. M7 OT- IP Mobility and Balance Start: 07/23/18 12:54 Freq: Status: Active Protocol: Document 07/24/18 15:06 PJ (Rec: 07/24/18 15:31 PJ [id number]) OT-Transfer Assessment Comments Mobility Comments See P.T. notes. OT- Gait Assessment Comments Gait Ability Comments See P.T. notes. OT- Balance Assessment Comments Other Balance Tests/Deviations/Treatment See P.T. notes. : M8 OT- IP Objective Assessments Start: 07/23/18 12:54 Freq: Status: Active Protocol: Document 07/24/18 15:06 PJ (Rec: 07/24/18 15:31 PJ [id number]) OT Gross Range of Motion Upper Extremity Range of Motion Assessment Within Functional Limits OT Strength Upper Extremity Strength Assessment Within Functional Limits Hand Suspect Artist Supervisor Strength Hand Dominance Right OT- Coordination Assessment Comments Coordination Comments BUE WFL OT-Muscle Tone Assessment Muscle Tone WNL Yes OT Sensation Assessment Comments Summary Comments Pt denies BUE sensory deficits . Edema Edema Absent M9 OT- IP Assessment and Plan Start: 07/23/18 12:54 Freq: Status: Active Protocol: Document 07/24/18 15:06 PJ (Rec: 07/24/18 15:31 PJ [id number]) OT Summary Assessment and Plan Potential Rehabilitation Potential Good Analytic Complexity at Evaluation Low Summary OT Impairments Pain Balance Functional Mobility Dressing Toileting Bathing Toilet Transfers Shower Transfers Assessment Summary Low complexity OT assessment completed with emphasis on self care skills within lumbar spine precautions. Began education re: precautions, posture, chair selection, body mechanics and adapted ADL techniques. Pt currently has performance deficits in all functional mobility, lower body dressing, bathing and toileting. Pt will benefit from 1-2 additional OT visits here to address the goals below. Anticipate pt will d/c home with 24 hr assist from when medically stable and clears P.T. Goals Grooming Goal Independent Dressing Goal Standby Assistance Client Service Coordinator Sock Aid Toileting Goal Standby Assistance Toilet Paper Aid Bathing Goal Standby Assistance Hand Held Shower Sprayer Long Handled Sponge or [place] Toilet Transfer Goal Independent Raised Toilet Seat Grab Bars Shower Transfer Goal Standby Assistance Patient/Caregiver Education Goal Demonstrate Post-Op Precautions Demonstrate Energy Conservation and Pacing Caregiver Independent Assisting Patient OT-Other Goals Grooming to be done standing with good body mechanics Days to Meet Goals 2 Frequency of Treatment Frequency Of Treatment Once a Day Treatment Plan OT Treatment Plan ADL Training Functional Mobility Patient/Family Education Discharge Planning Discharge Recommendations OT Discharge Recommendations Home with 15/04 Assist Home Equipment Needs pt to order creasing machine operator, sock aid, toilet paper aid online, pt declines shower seat
[2018-07-24] MEDS: GABAPENTIN 300 MG CAPSULE PO (22:14)
[2018-07-25 02:12] VITALS: BP 119/54; PULSE 100; RESP 18; TEMP 36.4; O2SAT 94
[2018-07-25] MEDS: HYDROCODONE/ACET 5/325 TABLET 1 TAB PO ×3 (02:14→16:17)
--- NOTE | 2018-07-25 03:38 | PC.NURSE ---
Pt is A and O x 4, VSS. Pain well controlled with one [place]. Pt is eating and drinking and able to sleep. LS clear and S1, S2. Denies nausea.
[2018-07-25] MEDS: PANTOPRAZOLE 40 MG TABLET PO (06:09)
[2018-07-25 06:11] VITALS: BP 104/59; PULSE 83; RESP 16; TEMP 36.8; O2SAT 92
--- NOTE | 2018-07-25 07:01 | P.PN_ITS ---
Subjective Date Patient Seen: 07/25/18 Time Patient Seen: 07:00 Interval history: Comfortable, 2/10 at rest. Still requiring assistance for mobility, but getting much better. Exam Vital Signs (past 8 hours): - 07/25/18 02:12 07/25/18 06:11 Temperature 97.6 F 98.2 F Pulse Rate 100 H 83 Respiratory Rate 18 16 Blood Pressure 119/54 L 104/59 L Pulse Oximetry 94 92 Oxygen Delivery Method CPAP Oxygen Flow Rate 2 Back/Spine/Pelvis Other: Dressing CDI. 5/5 motor both lower extremities. Objective Labs Result Diagrams: 07/23/18 05:20 Assessment & Plan Post-op Postoperative Procedures Operation Date: 07/22/18 07:45 Actual Procedures Side Surgeon p L3-L4 Revision Laminectomy, L4-L5 Laminectomy, L3-L4, L4-L5 Anterior/ Posterior Instrumented Fusion w/ Bone Graft with Dural Repair Not Applicable Iglesia Reynoso MD she is doing much better today. Continue to mobilize. Possible discharge this afternoon if she is doing very well but more likely tomorrow.
[2018-07-25 07:30] VITALS: BP 145/70; PULSE 87; RESP 18; TEMP 36.7; O2SAT 94
--- NOTE | 2018-07-25 08:35 | PT.IPTN ---
Current Diagnoses Spondylolisthesis, lumbar region (07/22/18) Spinal stenosis, lumbar region with neurogenic claudication (07/22/18) Other specified postprocedural states (07/22/18) Surgery Performed Operation Date: 07/22/18 07:45 Actual Procedures p L3-L4 Revision Laminectomy, L4-L5 Laminectomy, L3-L4, L4-L5 Anterior/Posterior Instrumented Fusion w/ Bone Graft with Dural Repair(Not Applicable) - Iglesia Reynoso MD Physical Therapy Treatment Note M2 PT-IP Current Condition Start: 07/23/18 12:42 Freq: NEEDED Status: Active Protocol: Document 07/23/18 11:39 (Rec: 07/23/18 16:28 [id number]) Physical Therapy Current Condition Current Condition Evaluation Date 07/23/18 Treatment Diagnosis Lumbar anterior/posterior fusion with laminectomy; Difficulty walking Onset Date 07/22/18 Precautions Lumbar Precautions Log Roll No Twisting Limit Bending Lifting Restriction of 10 lbs Gait Belt above Incisional Area M3 PT-IP Subjective Start: 07/23/18 12:42 Freq: NEEDED Status: Active Protocol: Document 07/25/18 08:28 SA (Rec: 07/25/18 08:35 SA [id number]) Subjective Physical Therapy Visit Type Type Treatment Note Visit Start Time 08:00 Visit Stop Time 08:25 Total Visit Minutes 25 Number of DISTRICT GAUGER Visits 3 Physical Therapy Visit Comments Patient Comments Pt up in chair with hair combed, make up on and ready for PT. Therapy Pain Assessment Pain When Pain Assessed During Mobility Pain Present Pain Present Pain Reported Location Lower Back Intensity 3 Scale Used Numeric (1 - 10) Pain Management Techniques Apply Cold Timing of Activity with Medications M4 PT-IP Mobility and Gait Start: 07/23/18 12:42 Freq: NEEDED Status: Active Protocol: Document 07/25/18 08:28 SA (Rec: 07/25/18 08:35 [id number]) PT-Bed Mobility Assessment Supine to Sit Supine to Sit Contact Guard Assistance 1 Person Assistance Sit to Supine Sit to Supine Contact Guard Assistance 1 Person Assistance Scooting Scooting to Edge of Bed Standby Assistance PT-Transfer Assessment Sit to and From Stand Sit to and from Stand Standby Assistance Equipment Transfer Assistive Device 4 Wheeled Walker Orthotic/Prosthetic Devices or Brace: No Transfers Transfer Destination Bed Chair Toilet Transfer Ability Level of Assist Standby Assistance Comments Mobility Comments Pt with improved transfer ability today, SBA and demonstrates safe use of FWW. Tight turns in bathroom and transfers on/off toilet with SBA. Gait Assessment Gait Gait Assistance Required: Standby Assistance Distance (Feet) 150 Able to Maintain Weight Bearing Status Yes During Gait Assistive Devices Assistive Device Front Wheeled Walker Orthotic/Prosthetic Devices or Brace: No Gait Deviations General Gait Pattern Antalgic Decreased Stride Length Decreased Feet Clearance Flexed Trunk Factors Limiting Gait Function Factors Limiting Gait Function Decreased Activity Tolerance Decreased Strength Pain Comments Gait Comments Improved distance and quality of gait, pt able to self correct posture. Cues for decreasing WBing throuogh UEs. M5 PT-IP Objective Assessments Start: 07/23/18 12:42 Freq: NEEDED Status: Active Protocol: Document 07/23/18 11:39 (Rec: 07/23/18 16:28 [id number]) Orientation Orientation/Cognition Level of Alertness Alert Orientation Name Age Birthday Month Date Year Day of Week Place Situation Safety Awareness Decreased Safety Awareness Memory Description Short Term Impaired Gross Range of Motion Lower Extremity ROM Assessment Within Functional Limits Strength Lower Extremity Strength Assessment Bilaterally Impaired Hip Bilaterally 3+/5 Knee Bilaterally 3+/5 Ankle Bilaterally WNL Comments Strength Comments BLE strength limited by pain. Sensation Assessment Comments Sensation Comments Light touch intact on dorsum of B feet. Pt denies symptoms of numbness and tingling. M6 PT-IP Treatment Start: 07/23/18 12:42 Freq: NEEDED Status: Active Protocol: Document 07/25/18 08:28 (Rec: 07/25/18 08:35 [id number]) Physical Therapy Treatment Exercises Exercises Ankle Pumps Gluteal Sets Heel Slides Education Education Provided Precautions Safety Equipment Issued Equipment Type and Company Pt has all needed equipment at home. M7 PT-IP Assessment and Plan Start: 07/23/18 12:42 Freq: NEEDED Status: Active Protocol: Document 07/25/18 08:28 (Rec: 07/25/18 08:35 [id number]) PT Summary Assessment and Plan Summary Assessment Summary Pt with supportive for caregiver at home. Progressing well with gait, transfers and bed mobility. No stairs to enter home if using back entrance. Frequency of Treatment Frequency Of Treatment Twice a Day Recommendations To Nursing Amount of Assist Needed 1 Person Assist Discharge Recommendations PT Discharge Recommendations Home with Assistance
[2018-07-25] MEDS: CELECOXIB 200 MG CAPSULE PO (10:50)
[2018-07-25] MEDS: DOCUSATE 100 MG CAPSULE PO (10:50)
[2018-07-25] MEDS: DORZOLAMIDE/TIMOLOL OPHTH 10 ML 1 DROPS EYE-BOTH (10:50)
--- NOTE | 2018-07-25 10:51 | OT.IP.TRT ---
Current Diagnoses Spondylolisthesis, lumbar region (07/22/18) Spinal stenosis, lumbar region with neurogenic claudication (07/22/18) Other specified postprocedural states (07/22/18) Surgery Performed Operation Date: 07/22/18 07:45 Actual Procedures p L3-L4 Revision Laminectomy, L4-L5 Laminectomy, L3-L4, L4-L5 Anterior/Posterior Instrumented Fusion w/ Bone Graft with Dural Repair(Not Applicable) - Iglesia Reynoso MD Occupational Therapy Treatment Note M2 OT-IP Current Condition Start: 07/23/18 12:54 Freq: Status: Active Protocol: Document 07/24/18 15:06 PJM (Rec: 07/24/18 15:31 PJM [id number]) Occupational Therapy Current Condition Current Condition Evaluation Date 07/24/18 Treatment Diagnosis decreased self care, functional mobility s/pL3-4 lami redo w/dural tear Diagnosis Onset Date 07/22/18 Post Operative Precautions Lumbar Precautions Log Roll No Twisting Limit Bending Lifting Restriction of 10 lbs Gait Belt above Incisional Area M3 OT- IP Subjective and Pain Start: 07/23/18 12:54 Freq: Status: Active Protocol: Document 07/25/18 10:42 [facility] (Rec: 07/25/18 10:51 [facility] [id number]) OT- Subjective Occupational Therapy Visit Type Type Treatment Note Visit Start Time 10:20 Visit Stop Time 10:40 Total Visit Minutes 20 Occupational Therapy Visit Comments Patient Comments Pt states would rather go home tomorrow versus today even though doing much better today . I just do not want to [place] things, and I usually do worse in the afternoon. OT Pain Assessment Pain When Pain Assessed At Rest Pain Present Pain Present Pain Reported Location Lower Back Intensity 2 M4 OT- IP ADL's Start: 07/23/18 12:54 Freq: Status: Active Protocol: Document 07/25/18 10:42 CCC (Rec: 07/25/18 10:51 CCC [id number]) OT ADL-Grooming General Evaluation Grooming Ability Independent Comments OT Grooming Comments Pt able to stand at sink for all grooming needs. OT ADL-Oral Care General Eval Oral Care Ability Independent OT ADL-Toileting General Evaluation Toileting Ability Standby Assistance Moderate Assistance Areas Needing Assistance Perform Perineal Hygiene Devices Toileting Assistive Devices Toilet Paper Aid Comments OT Toileting Comments Pt able to wipe after urinating with good safety and would need assist for completeness after bowel movement. Pt to either get to assist or order toilet paper aid. OT ADL-Bathing Comments OT Bathing Comments Pt states not wanting to shower at this time and maybe this evening. Pt to ask to get shower chair for home use. M5 OT- IP IADL's Start: 07/23/18 12:54 Freq: Status: Active Protocol: Document 07/24/18 15:06 PJM (Rec: 07/24/18 15:31 PJM [id number]) OT-Instrumental Activities of Daily Living Deficits IADL Deficits Identified Deficits Home Safety Awareness Awareness of Need for Assistance at Home Good Awareness Ability to Problem Solve Emergency Able to Problem Solve Situations Medication Management Medication Management No Deficits Identified Money Management Money Management No Deficits Identified Meal Preparation Meal Preparation Caregiver Provides Assist Meal Preparation Comments Family to assist until pt able . Restaurant Hostess Restaurant Hostess Caregiver Provides Assist Restaurant Hostess Comments Family to assist until pt able . Driving Driving Caregiver Provides Assist Driving Comments Family to assist until pt able . M6 OT- IP Functional Cognition Start: 07/23/18 12:54 Freq: Status: Active Protocol: Document 07/25/18 10:42 [facility] (Rec: 07/25/18 10:51 [facility] [id number]) Cognitive Factors Limiting Selfcare Function Cognitive Ability Level of Alertness Alert Patient Orientation Name Age Birthday Month Date Year Day of Week Place Situation Attention Span Ability Capable of Focused Attention Capable of Sustained Attention Ability to Follow Commands Able to Follow Multi-Step Commands Memory Description Immediate Intact Short Term Intact Half-Way Intact Safety Awareness Underestimates Need for Assistance Cognitive Comments Cognitive Assessment Comments Pt much more alert today and able to states precaution, needs , and appropriate questions. Pt needing cues for bed mobility of log rolling. M7 OT- IP Mobility and Balance Start: 07/23/18 12:54 Freq: Status: Active Protocol: Document 07/25/18 10:42 CCC (Rec: 07/25/18 10:51 [facility] [id number]) OT- Bed Mobility Assessment Supine to Sit Supine to Sit Assist Standby Assistance Bedrails OT-Transfer Assessment Sit to and From Stand Sit to and from Stand Standby Assistance Transfers Transfer Ability Standby Assistance Technique Transfer Destination Chair Toilet Devices Transfer Assistive Devices Front Wheeled Walker Comments Mobility Comments Pt refusing to use gait belt, SBA for all mobility. Pt needing encouragement to do bed mobility on her own and only needing cues. M8 OT- IP Objective Assessments Start: 07/23/18 12:54 Freq: Status: Active Protocol: Document 07/24/18 15:06 PJM (Rec: 07/24/18 15:31 PJM [id number]) OT Gross Range of Motion Upper Extremity Range of Motion Assessment Within Functional Limits OT Strength Upper Extremity Strength Assessment Within Functional Limits Hand Banking Pin Adjuster Strength Hand Dominance Right OT- Coordination Assessment Comments Coordination Comments BUE WFL OT-Muscle Tone Assessment Muscle Tone WNL Yes OT Sensation Assessment Comments Summary Comments Pt denies BUE sensory deficits . Edema Edema Absent M9 OT- IP Assessment and Plan Start: 07/23/18 12:54 Freq: Status: Active Protocol: Document 07/25/18 10:42 CCC (Rec: 07/25/18 10:51 [facility] [email or web address]) OT Summary Assessment and Plan Potential Rehabilitation Potential Good Analytic Complexity at Evaluation Low Summary OT Impairments Pain Balance Functional Mobility Dressing Toileting Bathing Toilet Transfers Shower Transfers Assessment Summary Pt doing well and looking to go home tomorrow after family training with . Goals Dressing Goal Standby Assistance Blasting Cap Assembler Sock Aid Bathing Goal Standby Assistance Hand Held Shower Sprayer Long Handled Sponge or [place] Shower Transfer Goal Standby Assistance Patient/Caregiver Education Goal Demonstrate Post-Op Precautions Demonstrate Energy Conservation and Pacing Caregiver Independent Assisting Patient Days to Meet Goals 1 Frequency of Treatment Frequency Of Treatment Once a Day Treatment Plan OT Treatment Plan ADL Training Functional Mobility Patient/Family Education Discharge Planning Discharge Recommendations OT Discharge Recommendations Home with 24/7 Assist Home Equipment Needs pt to order foxpro developer, sock aid, toilet paper aid online, pt declines shower seat
[2018-07-25 11:45] VITALS: BP 107/62; PULSE 81; RESP 18; TEMP 36.7; O2SAT 95
--- NOTE | 2018-07-25 14:25 | PT.IPTN ---
Current Diagnoses Spondylolisthesis, lumbar region (07/22/18) Spinal stenosis, lumbar region with neurogenic claudication (07/22/18) Other specified postprocedural states (07/22/18) Surgery Performed Operation Date: 07/22/18 07:45 Actual Procedures p L3-L4 Revision Laminectomy, L4-L5 Laminectomy, L3-L4, L4-L5 Anterior/Posterior Instrumented Fusion w/ Bone Graft with Dural Repair(Not Applicable) - Iglesia Reynoso MD Physical Therapy Treatment Note M2 PT-IP Current Condition Start: 07/23/18 12:42 Freq: NEEDED Status: Active Protocol: Document 07/23/18 11:39 (Rec: 07/23/18 16:28 [id number]) Physical Therapy Current Condition Current Condition Evaluation Date 07/23/18 Treatment Diagnosis Lumbar anterior/posterior fusion with laminectomy; Difficulty walking Onset Date 07/22/18 Precautions Lumbar Precautions Log Roll No Twisting Limit Bending Lifting Restriction of 10 lbs Gait Belt above Incisional Area M3 PT-IP Subjective Start: 07/23/18 12:42 Freq: NEEDED Status: Active Protocol: Document 07/25/18 14:25 GGD (Rec: 07/25/18 15:22 GGD [email or web address]) Subjective Physical Therapy Visit Type Type Treatment Note Visit Start Time 14:00 Visit Stop Time 14:25 Total Visit Minutes 25 Number of BAG SEWER Visits 4 Physical Therapy Visit Comments Patient Comments Pt states she doing better. Therapy Pain Assessment Pain When Pain Assessed At Rest Pain Present Pain Present Pain Reported M4 PT-IP Mobility and Gait Start: 07/23/18 12:42 Freq: NEEDED Status: Active Protocol: Document 07/25/18 14:25 GGD (Rec: 07/25/18 15:22 GGD [email or web address]) PT-Bed Mobility Assessment Rolling Type of Rolling Roll to Right Level of Assist Standby Assistance Supine to Sit Supine to Sit Standby Assistance Scooting Scooting to Edge of Bed Standby Assistance PT-Transfer Assessment Sit to and From Stand Sit to and from Stand Standby Assistance Equipment Transfer Assistive Device Gait Belt Front Wheeled Walker Orthotic/Prosthetic Devices or Brace: No Transfers Transfer Destination Chair Transfer Ability Level of Assist Standby Assistance Gait Assessment Gait Gait Assistance Required: Standby Assistance Distance (Feet) 160 Able to Maintain Weight Bearing Status Yes During Gait Assistive Devices Assistive Device Front Wheeled Walker Orthotic/Prosthetic Devices or Brace: No Gait Deviations General Gait Pattern Antalgic Decreased Stride Length Decreased Feet Clearance Flexed Trunk Factors Limiting Gait Function Factors Limiting Gait Function Decreased Strength Pain M5 PT-IP Objective Assessments Start: 07/23/18 12:42 Freq: NEEDED Status: Active Protocol: Document 07/23/18 11:39 (Rec: 07/23/18 16:28 [id number]) Orientation Orientation/Cognition Level of Alertness Alert Orientation Name Age Birthday Month Date Year Day of Week Place Situation Safety Awareness Decreased Safety Awareness Memory Description Short Term Impaired Gross Range of Motion Lower Extremity ROM Assessment Within Functional Limits Strength Lower Extremity Strength Assessment Bilaterally Impaired Hip Bilaterally 3+/5 Knee Bilaterally 3+/5 Ankle Bilaterally WNL Comments Strength Comments BLE strength limited by pain. Sensation Assessment Comments Sensation Comments Light touch intact on dorsum of B feet. Pt denies symptoms of numbness and tingling. M6 PT-IP Treatment Start: 07/23/18 12:42 Freq: NEEDED Status: Active Protocol: Document 07/25/18 14:25 GGD (Rec: 07/25/18 15:22 GGD [email or web address]) Physical Therapy Treatment Education Education Provided Precautions Safety M7 PT-IP Assessment and Plan Start: 07/23/18 12:42 Freq: NEEDED Status: Active Protocol: Document 07/25/18 14:25 GGD (Rec: 07/25/18 15:22 GGD [email or web address]) PT Summary Assessment and Plan Summary Assessment Summary Pt improving with mobility. She needed less assist with bed mobility. She is safe and stable with gait with FWW. She was able to progress gait distance with good pain control. Frequency of Treatment Frequency Of Treatment Twice a Day Recommendations To Nursing Amount of Assist Needed 1 Person Assist Discharge Recommendations PT Discharge Recommendations Home with Assistance
--- NOTE | 2018-07-25 14:34 | CM.DPC ---
DC Note: Pt is expected to DC home today w/spouse. PT= home w/spouse to assist and outpt PT. Pt/spouse aware and agreeable to DCP, no addtl. SW needs. JW
[2018-07-25 15:44] VITALS: BP 112/66; PULSE 86; RESP 18; TEMP 37.1; O2SAT 93
--- NOTE | 2018-07-25 16:38 | PM.DS.1 ---
History of Present Illness Date Patient Seen: 07/25/18 Time Patient Seen: 16:38 Chief complaint: [id number] Narrative: Patient with lumbar stenosis and spondylolisthesis. Discharge Providers Date of admission: 07/22/18 05:59 Primary care physician: Lotus Warren PA-C Consults: 07/23/18 08:21 Consult to Occupational Therapy Evaluate & Treat Comment: Physician Instructions: Evaluate and treat Consult to Physical Therapy Evaluate & Treat Comment: Physician Instructions: Evaluate and Treat Discharge provider: Iglesia Reynoso MD Discharge Date: 07/25/18 Summary Discharge Diagnosis: Lumbar stenosis and spondylolisthesis Hospital Course: She was admitted to the operating room on 07/22/2018 where she underwent a L3 through 5 anterior posterior fusion as well as a revision laminectomy at these levels. She had a dural tear that was repaired primarily. Postoperatively she had a fair amount of respiratory depression and was not waking up very much and we kept her in the ICU overnight. She was doing much better by the morning. We got her up and she had no symptoms of a spinal fluid leak. She slowly progressed with physical therapy and by the afternoon of postop day 3. Was independent with mobility and comfortable going home. Status at Discharge Functional status at discharge: uses cane/walker Overall status at discharge: patient is progressing back to baseline Time Spent with Patient Less than 30 minutes Exam Vital Signs (past 8 hours): - 07/25/18 11:45 07/25/18 15:44 Temperature 98.1 F 98.7 F Pulse Rate 81 86 Respiratory Rate 18 18 Blood Pressure 107/62 112/66 Pulse Oximetry 95 93 Oxygen Delivery Method Room Air Oxygen Flow Rate 0 Const Orientation: alert and oriented x3 Back/Spine/Pelvis Other: 5/5 motor both lower extremities. Dressing clean dry intact. Objective Labs Result Diagrams: 07/23/18 05:20 Discharge Plan Discharge Plan Patient Disposition: Home Discharge comment: Follow-up 1.5 weeks Discharge Med Rec/Prescriptions Prescriptions: New hydrocodone-acetaminophen 5-325 mg Tablet See Label Instructions .ROUTE .COMPLEX PRN (Reason: Pain, Moderate (4-6)) Qty: 50 RF: 0 hydroxyzine pamoate 25 mg Capsule 25 mg PO Q4HR PRN (Reason: spasms) Qty: 20 RF: 0 celecoxib [Celebrex] 200 mg Capsule 200 mg PO BID PRN (Reason: pain) Qty: 60 RF: 0 Continue dorzolamide-timolol 22.3-6.8 mg/mL Drops 1 drp EYE-BOTH BID RF: 0 albuterol sulfate 90 mcg/actuation Hfa Aerosol Inhaler 2 puff INHALATION BID PRN (Reason: seasonal allergies/wheeze) RF: 0 omeprazole 20 mg Tablet,Delayed Release (Dr/Ec) 40 mg PO DAILY RF: 0 levothyroxine 88 mcg Capsule 88 mcg PO DAILY RF: 0 acetaminophen [Acetaminophen Extra Strength] 500 mg Tablet 500 mg PO Q4-6H MDD 2000 PRN (Reason: PAIN) RF: 0 Discontinued ibuprofen 200 mg Tablet 600 mg PO TID RF: 0 Follow up/Referrals: Lotus Warren PA-C [Primary Care Provider] - Provider Discharge Instructions Activity: Limited bend, twist, lift. 10 lb max Skin/Wound/Dressing Care Dressing: May change dressing and shower on postoperative day 5. Visit Report/Discharge Packet Instructions: DI for Constipation, DI for Transforaminal Lumbar Interbody Fusion Discharge Data Primary Care Provider: Lotus Warren Attending Provider: Iglesia Reynoso Admit Date/Time: 07/22/18 05:59
--- NOTE | 2018-07-25 16:39 | PC.NURSE ---
Ortho: Up with sba of 1, move slowly but no problems. Po pain meds have been effective. Dressing changed to low back and flank. Low back with 3 incisions all sutured with minimal redness and no drainage. Skin is in good condition. However flank incision had redness under the tegaderm toward the back and then she has a area of redness above the incision which is also red 3x2 inchescoversite dressing applied to both areas. Wound itself is sutured and edges approx, no drainage or redness seen. RT has been bleeding O2 2L into her cpap machine at night. Tonight she will do a trial w/out the oxygen to see how she does. RT will do this and information given to yuliana Cunningham RN.
--- NOTE | 2018-07-25 17:17 | OT.IP.TRT ---
Current Diagnoses Spondylolisthesis, lumbar region (07/22/18) Spinal stenosis, lumbar region with neurogenic claudication (07/22/18) Other specified postprocedural states (07/22/18) Surgery Performed Operation Date: 07/22/18 07:45 Actual Procedures p L3-L4 Revision Laminectomy, L4-L5 Laminectomy, L3-L4, L4-L5 Anterior/Posterior Instrumented Fusion w/ Bone Graft with Dural Repair(Not Applicable) - Iglesia Reynoso MD Occupational Therapy Treatment Note M2 OT-IP Current Condition Start: 07/23/18 12:54 Freq: Status: Active Protocol: Document 07/24/18 15:06 PJM (Rec: 07/24/18 15:31 PJM [id number]) Occupational Therapy Current Condition Current Condition Evaluation Date 07/24/18 Treatment Diagnosis decreased self care, functional mobility s/pL3-4 lami redo w/dural tear Diagnosis Onset Date 07/22/18 Post Operative Precautions Lumbar Precautions Log Roll No Twisting Limit Bending Lifting Restriction of 10 lbs Gait Belt above Incisional Area M3 OT- IP Subjective and Pain Start: 07/23/18 12:54 Freq: Status: Active Protocol: Document 07/25/18 17:07 [facility] (Rec: 07/25/18 17:17 [facility] [id number]) OT- Subjective Occupational Therapy Visit Type Type Treatment Note Visit Start Time 16:15 Visit Stop Time 16:35 Total Visit Minutes 20 Notes Pt seen a second time due to pt deciding to go home today and therefore seen again for family training. OT Pain Assessment Pain When Pain Assessed At Rest Pain Present Pain Present Denied Pain M4 OT- IP ADL's Start: 07/23/18 12:54 Freq: Status: Active Protocol: Document 07/25/18 17:07 [facility] (Rec: 07/25/18 17:17 [facility] [id number]) OT ADL-Grooming General Evaluation Grooming Ability Standby Assistance Areas Needing Assistance Retrieving/Set-up of Grooming Items OT ADL-Dressing General Eval Upper Body Dressing Ability Independent Lower Body Dressing Ability Standby Assistance Areas Needing Assistance Retrieving/Set-up of Clothing Comments OT Dressing Comments Pt able to use mud mixer to spike legging. Pt's able to assist pt for all needs with good safety for all dressing needs. OT ADL-Toileting General Evaluation Toileting Ability Standby Assistance Comments OT Toileting Comments Pt's able to safely assist pt for all needs. Pt states to assist pt for pericare and/or to get a toilet paper aid. M5 OT- IP IADL's Start: 07/23/18 12:54 Freq: Status: Active Protocol: Document 07/24/18 15:06 PJM (Rec: 07/24/18 15:31 PJM [id number]) OT-Instrumental Activities of Daily Living Deficits IADL Deficits Identified Deficits Home Safety Awareness Awareness of Need for Assistance at Home Good Awareness Ability to Problem Solve Emergency Able to Problem Solve Situations Medication Management Medication Management No Deficits Identified Money Management Money Management No Deficits Identified Meal Preparation Meal Preparation Caregiver Provides Assist Meal Preparation Comments Family to assist until pt able . Steam Shovelman Steam Shovelman Caregiver Provides Assist Steam Shovelman Comments Family to assist until pt able . Driving Driving Caregiver Provides Assist Driving Comments Family to assist until pt able . M6 OT- IP Functional Cognition Start: 07/23/18 12:54 Freq: Status: Active Protocol: Document 07/25/18 17:07 [facility] (Rec: 07/25/18 17:17 [facility] [id number]) Cognitive Factors Limiting Selfcare Function Cognitive Ability Level of Alertness Alert Patient Orientation Name Place Situation Attention Span Ability Capable of Focused Attention Capable of Sustained Attention Ability to Follow Commands Able to Follow Multi-Step Commands Memory Description No Deficits Noted Safety Awareness Underestimates Need for Assistance Cognitive Comments Cognitive Assessment Comments Pt a bit impulsive and needs vc to slow down. VC to keep FWW in front of her at all times. M7 OT- IP Mobility and Balance Start: 07/23/18 12:54 Freq: Status: Active Protocol: Document 07/25/18 17:07 [facility] (Rec: 07/25/18 17:17 [facility] [id number]) OT- Bed Mobility Assessment Rolling Type of Rolling Roll to Right Level of Assistance Standby Assistance Supine to Sit Supine to Sit Assist Standby Assistance Sit to Supine Sit to Supine Assist Standby Assistance Scooting Scooting to Edge of Bed Standby Assistance OT-Transfer Assessment Sit to and From Stand Sit to and from Stand Standby Assistance Transfers Transfer Ability Standby Assistance Technique Transfer Destination Bed Chair Toilet Transfer Technique Stand Step Pivot Devices Transfer Assistive Devices Front Wheeled Walker Comments Mobility Comments Pt needing vc to use of UE to push up from the bed versus grab to get up. Pt and able to show good safety for all bed mobility and transfer needs. OT- Balance Assessment Sitting Balance and Reactions Static Sitting Balance Ability Normal Dynamic Sitting Balance Ability Normal Standing Balance and Reactions Static Standing Balance Ability Good Dynamic Standing Balance Ability Fair M8 OT- IP Objective Assessments Start: 07/23/18 12:54 Freq: Status: Active Protocol: Document 07/24/18 15:06 PJM (Rec: 07/24/18 15:31 PJM [id number]) OT Gross Range of Motion Upper Extremity Range of Motion Assessment Within Functional Limits OT Strength Upper Extremity Strength Assessment Within Functional Limits Hand Buckle Sorter Strength Hand Dominance Right OT- Coordination Assessment Comments Coordination Comments BUE WFL OT-Muscle Tone Assessment Muscle Tone WNL Yes OT Sensation Assessment Comments Summary Comments Pt denies BUE sensory deficits . Edema Edema Absent M9 OT- IP Assessment and Plan Start: 07/23/18 12:54 Freq: Status: Active Protocol: Document 07/25/18 17:07 [facility] (Rec: 07/25/18 17:17 [facility] [id number]) OT Summary Assessment and Plan Potential Rehabilitation Potential Excellent Analytic Complexity at Evaluation Low Summary Progress Towards Goals Progressing Toward Goals Assessment Summary Pt doing well and has completed family training for all OT needs with good understanding and demonstration. Goals Patient/Caregiver Education Goal Demonstrate Post-Op Precautions Caregiver Independent Assisting Patient Days to Meet Goals 1 Frequency of Treatment Frequency Of Treatment Twice a Day Treatment Plan OT Treatment Plan Patient/Family Education Discharge Planning Discharge Recommendations OT Discharge Recommendations Home with 24/7 Assist Home Equipment Needs shower chair, mud mixer, toilet paper aid
== END 2018-07-25 18:40 | disposition home or self-care (01) | DRG 454 ==
LOC: AC 15:45 → ICU 15:55 → AC 07-25 10:52 → ICU 06-11 10:12
PROVIDERS: Admitting Provider Orthopaedic Surgery; PCP Physician Assistant; Visit Provider Orthopaedic Surgery
PROC: 0SG00A0 Fusion of Lumbar Vertebral Joint with Interbody Fusion Device, Anterior Approach, Anterior Column, Open Approach (ICD-10-PCS; CPT 22558; principal; 2018-07-22 07:45)
DX: M48.062 Spinal stenosis, lumbar region with neurogenic claudication (principal); G97.41 Accidental puncture or laceration of dura during a procedure; Z68.41 Body mass index [BMI] 40.0-44.9, adult; M96.1 Postlaminectomy syndrome, not elsewhere classified; M43.16 Spondylolisthesis, lumbar region; Y83.4 Other reconstructive surgery as the cause of abnormal reaction of the patient, or of later complication, without mention of misadventure at the time of the procedure; Y92.234 Operating room of hospital as the place of occurrence of the external cause; E66.01 Morbid (severe) obesity due to excess calories; E03.9 Hypothyroidism, unspecified; E78.5 Hyperlipidemia, unspecified; K21.9 Gastro-esophageal reflux disease without esophagitis; H40.9 Unspecified glaucoma; J45.909 Unspecified asthma, uncomplicated
CPT/HCPCS: 36415; 72100; 76001; 85014; 85018; 87797; 94660; 94760; 94762; 97116; 97161; 97165; 97530; 97535; C1776; J0330; J0595; J0690; J1100; J1170; J1200; J2060; J2250; J2274; J2405; J2704; J2765; J3010

== ENCOUNTER → 2021-12-15 13:20 | Outpatient (CLI) | payer OTHER, SELFPAY ==
[2018-07-22 16:33] VITALS: BMI 41.5
--- NOTE | 2021-12-15 | DI.ECHO.S_ITS ---
[place] [facility]---------+ [facility] +---------+ : : [address] : : : : [id number] : : : : Phone: [phone] Echocardiogram Report + + :Name: RACHEL RAM Study Date: 12/15/2021 Height: 62 in : :[facility] : Weight: 246 lb : : Gender: Female BSA: 2.1 m2 : :: 1950 Age: 71 yrs BP: 131/68 mmHg: :Reason For Study: Dyspnea : :Ordering Physician: Susan : :Kvng Zhou Performed By: Zonia Alarcon : + + Interpretation Summary The left ventricle is normal in size and wall thickness. The ejection fraction is estimated to be 60-65%. The right ventricle is normal in size and function. No significant valvular pathology seen. No significant pulmonary hypertension. Mild atherosclerotic plaque(s) in the aortic arch. Procedure: A two-dimensional transthoracic echocardiogram with color flow and Doppler was performed. The study quality was technically adequate. There is no prior echocardiogram noted for this patient. The patient was in normal sinus rhythm during the exam. Left Ventricle: The left ventricle is normal in size and wall thickness. There is no thrombus. The ejection fraction is estimated to be 60-65%. There are no focal wall motion abnormalities. Diastolic parameters suggest a relaxation abnormality of the left ventricle, consistent with probable normal filling pressures. Right Ventricle: The right ventricle is normal in size and function. Atria: The left atrium is moderately dilated. The right atrium is mildly dilated. There is no Doppler evidence for an interatrial shunt. Mitral Valve: There is mild mitral annular calcification. There is trace mitral regurgitation. Aortic Valve: The aortic valve is trileaflet. The aortic valve is mildly calcified. There is no aortic valve stenosis. There is trace aortic regurgitation. Tricuspid Valve: The tricuspid valve leaflets are thin and pliable. There is trace tricuspid regurgitation. The right ventricular systolic pressure is estimated to be at least 30 mmHg based on an estimated right atrial pressure of 3 mm Hg. Pulmonic Valve: The pulmonic valve is not well seen, but is grossly normal. There is trace pulmonic regurgitation. Great Vessels: The aortic root is normal size. There is aortic root sclerosis/calcification. The ascending aorta is normal in size. The aortic arch is normal in size. Mild atherosclerotic plaque(s) in the aortic arch. The IVC is of normal diameter and collapses greater than 50% with a sniff. This suggests a low right atrial pressure of 3 mm Hg. Pericardium/ Pleura There is no pericardial effusion. MMode/2D Measurements & Calculations LVIDd: 4.6 cm LVOT diam: 1.9 cm LVIDs: 3.1 cm Ao root diam: 3.5 cm FS: 33.0 % asc Aorta Diam: 3.1 cm EPSS: 0.39 cm Ao Arch Diam (Prox Trans): 2.8 cm IVSd: 0.92 cm LVPWd: 0.84 cm LV sargent. diameter/BSA (cm/m^2): 2.2 LV sys. diameter/BSA (cm/m^2): 1.5 LA A2 area: 24.0 cm2 RA long axis: 5.2 cm LA A4 area: 23.2 cm2 RA area: 17.3 cm2 LA length (vol): 5.7 cm RA vol: 49.3 ml LA vol: 83.4 ml RA : 23.6 ml/m2 LA vol index: 40.0 ml/m2 IVC diam: 1.6 cm RVD1 (basal): 3.8 cm TAPSE: 2.3 cm Doppler Measurements & Calculations Ao V2 max: 182.7 cm/sec LVOT Max Jean Claude: 105.8 cm/sec Ao V2 mean: 121.3 cm/sec LV V1 max P.5 mmHg Ao max P.4 mmHg LV V1 VTI: 25.2 cm Ao mean P.7 mmHg YOSEF(I,D): 1.8 cm2 Ao V2 VTI: 41.2 cm YOSEF(V,D): 1.7 cm2 sev ratio: 0.61 YOSEF indexed to BSA (cm^2/m^2): 0.86 MV E max jean claude: 74.9 cm/sec TR max jean claude: 259.1 cm/sec MV A max jean claude: 89.6 cm/sec TR max P.8 mmHg MV E/A: 0.84 PA V2 max: 90.2 cm/sec Med Peak E' Jean Claude: 6.2 cm/sec PA V2 mean: 60.5 cm/sec E/E' med: 12.1 PA mean P.6 mmHg Lat Peak E' Jean Claude: 9.2 cm/sec PA pr(Accel): 35.3 mmHg E/E' lat: 8.2 E/e' average: 10.1 MV dec time: 0.20 sec SV(LVOT): 74.1 ml Reading Physician:05:39 PM
== END ==
PROVIDERS: PCP Nurse Practitioner Family; Referring Provider Internal Medicine Cardiovascular Disease; Visit Provider Internal Medicine Cardiovascular Disease
DX: I70.0 Atherosclerosis of aorta (principal); R06.02 Shortness of breath; R06.00 Dyspnea, unspecified
CPT/HCPCS: 93306